=== PATIENT | male | born 1965 | race Caucasian/White ===

== ENCOUNTER 2020-11-23 02:07 | Emergency (ER) | payer BC ==
[~2020-11-23] VITALS: Ht 165.1 cm; Wt 84.1 kg
[~2020-11-23 02:07] MED LIST: OCUFLOX OPHTH DR5 ML OS
[2020-11-23 02:14] VITALS: TEMP 97.2
[2020-11-23 02:43] LABS: BASO % 0.5 % (0.0-2.0); EOS # 0.2 (0.0-0.7); EOS % 1.9 % (0-4.0); GRAN # 2.9 (1.4-6.5); GRAN % 37.2 % (42.2-75.2); HEMATOCRIT 46.5 % (42.0-52.0); HEMOGLOBIN 15.9 g/dl (13.5-18.0); LYMPH # 3.8 (1.2-3.4); LYMPH % 49.5 % (20.0-51.0); MEAN CELL VOLUME 92 fl (80.0-100.0); MEAN CORPUSCULAR HEMOGLOBIN 31 pg (27.0-31.0); MEAN CORPUSCULAR HGB CONC 34 g/dl (33.0-37.0); MEAN PLATELET VOLUME 11.1 fl (7.4-10.4); MONO # 0.8 (0.1-0.6); MONO % 10.6 % (1.7-9.3); PLATELET COUNT 205 K/mm3 (130-400); RED BLOOD COUNT 5.08 M/mm3 (4.20-5.60); REDCELL DISTRIBUTION WIDTH-CV 12.5 % (11.5-14.5)
[2020-11-23 02:53] LABS: ALANINE AMINOTRANSFERASE 20 U/L (4-49); ALBUMIN 4.1 gm/dL (3.5-5.0); ALKALINE PHOSPHATASE 97 U/L (50-136); ANION GAP 8 mmol/L (7-16); AST,SGOT 22 U/L (15-37); BILIRUBIN,TOTAL 0.5 mg/dL (0.0-1.0); BLOOD UREA NITROGEN 13 mg/dL (9-20); CALCIUM 8.5 mg/dL (8.4-10.2); CARBON DIOXIDE 26 mmol/L (22-30); CHLORIDE 105 mmol/L (98-107); CREATININE, serum 1.06 (0.66-1.25); GLUCOSE 100 mg/dL (74-106); LIPASE 110 U/L (23-300); MAGNESIUM 2.3 mg/dL (1.6-2.3); POTASSIUM 4.1 mmol/L (3.4-5.0); SODIUM 140 mmol/L (137-145); TOTAL PROTEIN 6.9 gm/dL (6.4-8.2)
[2020-11-23 03:05] LABS: TROPONIN-I < 0.012 ng/mL (0.000-0.035)
[2020-11-23 05:21] VITALS: BP 126/93; PULSE 82
== END 2020-11-23 05:21 | disposition home or self-care (01) ==
LOC: COL.ER 02:07
PROVIDERS: Emergency Medicine
DX: R07.89 Other chest pain (principal); R00.2 Palpitations; Z88.0 Allergy status to penicillin

== ENCOUNTER → 2021-01-19 | Outpatient (CLI) | payer BC | LOC: COL.PUL 11:03 | DX: R06.09 Other forms of dyspnea (principal) ==